=== PATIENT | female | born 1930 | race Caucasian/White ===

== ENCOUNTER 2017-01-30 18:01 | Observation (INO) | payer MEDICARE, OTHER ==
--- OUTSIDE RECORDS SUMMARY | 2017-01-30 18:05 | XMS | Clinical Summary ---
:1930 Author Organization [facility] Address [address] [place] [id number] Phone Care Team Providers Name Role Phone Workkathleen Mehul Primary Care Provider tel Allergies No Known Allergies Current Medications Prescription Sig. Disp. Refills Start Date End Date Status atenolol (TENORMIN) 25 MG Take 25 mg by Active tablet mouth daily. simvastatin (ZOCOR) 40 MG Take 40 mg by Active tablet mouth nightly. olmesartan (BENICAR) 20 MG Take 20 mg by Active tablet mouth daily. aspirin (ECOTRIN) 81 MG Take 81 mg by Active enteric coated tablet mouth daily. Active Problems Problem Noted Date Macular hole of right eye 08/28/2015 Epiretinal membrane, both eyes 08/28/2015 Family History Medical History Relation Name Comments Heart disease Brother Stomach cancer Mother Colon cancer Sister Relation Name Status Comments Brother Mother Sister Social History Tobacco Use Types Packs/Day Years Used Date Former Smoker Cigarettes Quit: 1999 Sex Assigned at Date Recorded Not on file Last Filed Vital Signs Vital Sign Reading Time Taken Blood Pressure 133/56 08/28/2015 9:17 AM CDT Pulse 56 08/28/2015 9:17 AM CDT Temperature 36.4 C (97.5 F) 08/28/2015 9:17 AM CDT Respiratory Rate 20 08/28/2015 9:17 AM CDT Oxygen Saturation 100% 08/28/2015 9:10 AM CDT Inhaled Oxygen Concentration - - Weight 59.9 kg (132 lb) 08/28/2015 7:41 AM CDT Height 172.7 cm (5' 8") 08/28/2015 7:41 AM CDT Body Mass Index 20.07 08/28/2015 7:41 AM CDT Plan of Treatment Not on file Results Not on filefrom Last 3 Months Insurance Payer Benefit Plan / Group Subscriber ID Type Phone Address MEDICARE MEDICARE PART A AND B [id number] Medicare [place], [place] FOR LIFE [id number] [facility] [phone] [place] [address]
[2017-01-30] MEDS ORDERED: Lidocaine 1% w/Epinephrine 1:200K 30 ML VIAL ONE (18:37)
[2017-01-30] MEDS ORDERED: Adacel (T-DAP) 0.5 ML VIAL ONE (19:06)
[2017-01-30] MEDS ORDERED: hydrALAZINE 20 MG/ML VIAL ONE (19:19)
[2017-01-30 19:50] LABS: Troponin I 0.025 ng/mL (< 0.028)
--- NOTE | 2017-01-30 22:13 | HP ---
PRIMARY CARE PHYSICIAN: Dr. Appiah CHIEF COMPLAINT: Fall and intracranial bleed. HISTORY OF PRESENT ILLNESS: Ms. Lares is a very pleasant 86-year-old white female with a history of coronary artery disease, hypertension, and abdominal aortic aneurysm who was at [facility] today and s uddenly felt \\\\"bad.\\\\" When asked to describe, she felt just sick. She denies any presyncopal or closing tunnel feeling, no sensation of blacking out, no vertigo, just felt off balance. Next thing she knows she was lying on the floor looking over the ceiling. She had passed out and fallen hitti ng her head on the floor and was taken to the Emergency Department in [place]. There, she had a CT scan that showed a very small midline intracranial hemorrhage and she had a post erior scalp hematoma. She was transferred here for further neurosurgical evaluation and further wor kup. She denies any chest pain or difficulty breathing, no nausea or vomiting, no diarrhea or constipatio n. She has had a history of high blood pressure. She has been on Benicar/HCT 20/12.5 and last week was increased to 40/12.5 and seems to be more off balance when she gets up since then. She denies any other current complaints. PAST MEDICAL HISTORY: 1. AAA status post stent several years ago. 2. Coronary artery disease. 3. Degenerative joint disease. 4. Hypertension. 5. Hyperlipidemia. PAST SURGICAL HISTORY: Includes, 1. AAA stents. 2. Carotid endarterectomy. 3. Bilateral cataract removal. HOME MEDICATIONS: 1. Atenolol 25 mg p.o. q.a.m. 2. Os-Rehan 600 mg 2-1/2 tablets daily. 3. Multivitamin daily. 4. Benicar/HCT 40/12.5 daily. 5. [place] 3/dha/fish oil daily. 6. Zocor 40 mg p.o. at bedtime. 7. Aspirin 81 mg daily. ALLERGIES: NKDA. FAMILY HISTORY: Negative for clotting or bleeding disorder, no venous function. SOCIAL HISTORY: Negative for habits x3. She lives alone and has a son that is in the room with her as a decision maker if necessary. The patient does wish to be FULL CODE. REVIEW OF SYSTEMS: A 10-point review of systems was performed, negative for all other systems excep t as stated as per HPI. PHYSICAL EXAMINATION: VITAL SIGNS: Temperature 98.0, pulse 83, blood pressure 164/72, when I was in the room was 183/80, respiratory rate 20, O2 sat 95% on room air. GENERAL: She is awake. She is alert. She is oriented x3. She is a well-developed, well-nourished , elderly white female, appears to be in no acute distress. HEENT: She is normocephalic. She has a large bandage wrapped around her head, it was not removed. Pupils are equal, round, reactive to light bilaterally, mucous membranes are moist without visible lesions and no thrush. NECK: Supple. She has no lymphadenopathy, JVD or thyromegaly. LUNGS: Clear to auscultation bilaterally. She had no wheezes, no rales, no rhonchi. No prolonged expiratory phase. Good air movement. Symmetrical chest excursion. CARDIOVASCULAR: Normal S1 and S2. No S3 or S4. She has a regular rhythm and a normal rate. She h as no audible murmur. ABDOMEN: Soft, nontender, nondistended. No masses or organomegaly. She has no rebound, rigidity o r guarding. EXTREMITIES: No cyanosis, no clubbing. No edema with 2+ peripheral pulses. SKIN: Warm, moist, and well perfused. She has no other rashes or lesions, other than her head inju ry in the posterior aspect. MUSCULOSKELETAL: Normal to inspection. She has no joints that are inflamed and no palpable joint e ffusions. Good range of motion. LABORATORY EVALUATION: Comprehensive metabolic profile is fairly normal. Creatinine is 1.89 and th is is not a known finding to the patient. Her AST is slightly elevated at 50. CBC is normal. Whit e blood cell count of 8.1, hemoglobin 14.2, hematocrit of 41.9 and platelet count of 180,000. A CT scan of the head without contrast shows a very small subcentimeter subarachnoid hemorrhage pres ent in the center in the midline just to the left cerebral hemisphere. ASSESSMENT AND PLAN: 1. Intracranial hemorrhage: Small. We will keep her blood pressure goal between 140 and [address] scan in the morning. Neurosurgery physician's pediatric physical therapy assistant has been into the ER and se e the patient and I will follow up with her in the morning. The CT scan is unchanged. Tomorrow, th e patient may be cleared for discharge once medically ready. 2. Syncopal episode. Patient per history clearly syncopized before falling. She has had increasin g dizzy spells since increased blood pressure, but has had some disequilibrium over time. I suspect she may be orthostatic. We will get orthostatic vital signs when she gets up stairs. In the meant dal[place], we will hold her Benicar/HCT she took it this morning. We will hold her atenolol. She takes a t bedtime for right now. She got 10 mg dose of hydralazine a little while ago in the Emergency Depa rtment and as I dictate this, the nurse reported systolic blood pressure did drop to 109. We will c hange her to 5 mg of hydralazine IV q.2 p.r.n. and should keep a close eye on her blood pressure. 3. History of coronary artery disease. No symptoms and negative troponin. 4. History of abdominal aortic aneurysm, patient had stents placed and has had gotten yearly survei llance. She was able to skip this year and is not due for reevaluation. 5. She appreciates no abdominal symptoms at all. 6. Hyperlipidemia, on Zocor, will continue.
[2017-01-30] MEDS ORDERED: Labetalol HCl 100 MG/20 ML VIAL SLOW IVP PRN (22:18)
[2017-01-30] MEDS ORDERED: HYDROcodone/Acetaminophen 10/325 mg Tablet PO PRN (22:18)
[2017-01-30] MEDS ORDERED: Acetaminophen 325 MG TAB PO PRN (22:18)
[2017-01-30] MEDS ORDERED: HYDROcodone/Acetaminophen 5/325 mg Tablet PO PRN (22:18)
[2017-01-30 22:29] LABS: Troponin I Less than 0.010 ng/mL (< 0.028)
[2017-01-30] MEDS: Sodium Chloride 0.9% 1,000 ML IV SCH (23:05)
[2017-01-30] MEDS: Famotidine/PF 20 mg/2ml Vial SLOW IVP SCH (23:24)
--- NOTE | 2017-01-31 00:11 | CON ---
DATE OF CONSULTATION: 01/30/2017 HISTORY OF PRESENT ILLNESS: The patient is an 86-year-old female with a transfer from [facility] for acute traumatic subarachnoid hemorrhage. Patient reports that she was shopping in [employer] when the next thing she knows she was waking up on the floor. She appears to have had an acute syncopal episode. She was brought to the emergency department in [place] and evaluated with head and cervical spine CT. These were notable for what appears to be coup contrecoup injury with small frontal subarachnoid hemorrhage along the sylvian fissure. CT of the cervical spine was notable for degenerative changes at C4-C5, C5-C6, and C6-C7; however, no acute changes are seen. Lab work is notable for elevated creatinine 1.89. The Hospitalist Service has also been consulted for medical management and further evaluation of syncope. The patient does report that her PCP, Dr. Appiah recently increased her Benicar dosage. PAST MEDICAL HISTORY: Hypertension, abdominal aneurysm, bilateral cataracts, basal cell carcinoma of the nose, arthritis, coronary artery disease. PAST SURGICAL HISTORY: Eye surgery, skin biopsy, knee surgery, abdominal aortic aneurysm, carotid endarterectomy. SOCIAL HISTORY: Patient lives at home alone. She is a former smoker, she quit in 2000. She does not drink or use any drugs. ALLERGIES: Patient has no known drug allergies. REVIEW OF SYSTEMS: Per HPI. PHYSICAL EXAMINATION: VITAL SIGNS: Blood pressure 164/72, pulse 83, respiration rate was 20. She is 95% on room air, temperature is 98.0. HEAD: Patient has a contusion and abrasion over the posterior scalp. EYES: PERRLA. Extraocular movements intact. ENT: Oral mucosa is dry. Mucosa intact. NECK: Nontender to palpation. Free active range of motion, no meningismus or nuchal rigidity. LUNGS: The patient is breathing comfortable, nontender to palpation of the chest, symmetric chest expansion. CARDIOVASCULAR: Regular rate and rhythm. No murmurs, rubs or gallops. ABDOMEN: Flat, soft, nontender to palpation. MUSCULOSKELETAL: Free active range of motion of all extremities. No focal motor weakness. NEUROLOGIC: The patient is alert and oriented x4. GCS of 15. Normal speech. Normal cranial nerve exam. ASSESSMENT AND PLAN: Syncope, head injury, coup contrecoup injury with acute traumatic frontal subarachnoid hemorrhage. PLAN: The patient would be admitted to the medical service for further evaluation of her syncopal episode. We will consult on the case. We will plan to repeat CT head in the morning for repeat evaluation of acute traumatic subarachnoid hemorrhage. Head of the bed should be elevated at 30 degrees. We will recommend systolic blood pressure range of 140 to 160. Patient denies any prior anticoagulant use. Dr. Medina has been notified and is in agreement with this plan. Please reach out to Neurosurgery Service for additional questions or concerns. BONG
[2017-01-31 00:13] VITALS: BMI 19.5
[2017-01-31 05:35] LABS: #Lymphocytes 1.7 thou/uL (1.20-3.40); #Monocytes 0.5 thou/uL (0.11-0.59); #Neutrophils 5.6 thou/uL (1.40-6.50); %Basophils 0.3 % (0.0-1.0); %Eosinophils 0.4 % (0.0-10.0); %Lymphocytes 21.8 % (21.0-51.0); %Monocytes 6.7 % (0.0-10.0); Hematocrit 37.6 % (36.0-47.0); Mean Platelet Volume 8.3 fL (7.4-10.4); Red Blood Cell (RBC) Count 3.97 mill/uL (4.20-5.40); White Blood Cell (WBC) Count 7.9 thou/uL (4.8-10.8)
[2017-01-31 05:54] LABS: Anion Gap 12 mmol/L (10-20); BUN (Urea Nitrogen) 17 mg/dL (9.8-20.1); Calc. Creatinine Clearance 47 mL/min (70-130); Calcium 8.7 mg/dL (7.8-10.44); Carbon Dioxide 20 mmol/L (23-31); Chloride 101 mmol/L (98-107); Estimated GFR-MDRD 65
[2017-01-31 05:59] LABS: Troponin I 0.028 ng/mL (< 0.028)
--- NOTE | 2017-01-31 08:57 | ULT ---
ULTRASOUND CAROTID DOPPLER: Date: 01/31/17 HISTORY: Dizziness, syncope. COMPARISON: None. FINDINGS: No elevated peak systolic velocity to suggest hemodynamically significant stenosis. Antegrade flow t o both vertebral arteries. Moderate atherosclerotic plaque of both common carotid arteries and carotid bulbs. IMPRESSION: Moderate atherosclerotic plaque. No hemodynamically significant stenosis. POS: [facility]
[2017-01-31] MEDS: Ondansetron HCl/PF 4 MG/2 ML Vial IVP PRN ×2 (09:18→16:21)
[2017-01-31] MEDS ORDERED: Amlodipine 5 MG TAB PO SCH (09:30)
[2017-01-31] MEDS ORDERED: Sodium Chloride 0.9% 500 ML IV SCH (09:45)
[2017-01-31] MEDS: Sodium Chloride 0.9% 1,000 ML IV SCH (09:48)
--- NOTE | 2017-01-31 10:09 | CT ---
HEAD CT WITHOUT CONTRAST: Date: 01/31/17 COMPARISON: None. HISTORY: Fall, head trauma, evaluate intracranial hemorrhage. TECHNIQUE: Serial axial CT imaging at 5 mm intervals from vertex through skull base without contrast. FINDINGS: There are cutaneous naya associated with the posterior superior scalp. The imaged paranasal sinuses/mastoid air cells appear well aerated. There is no displaced calvarial fracture. There is atherosclerotic calcification of the cavernous carotid arteries bilaterally. There is a focus of extra-axial hyperdensity on axial image 18 just to the right of the interhemisph nash falx, measuring up to 9.0 x 6.0 mm, evidence of extra-axial hemorrhage/subdural hematoma. There is no associated midline shift or mass effect. IMPRESSION: 6.0 x 9.0 mm hyperdense extra-axial focus in the medial right frontal region suggests a small subdur al hematoma. The history for this report is follow-up intracranial hemorrhage. However, no com parison imaging is available. If comparison imaging is made available, an addendum could be placed o n this report describing any interval change. POS: [facility]
[2017-01-31 15:38] VITALS: TEMP 97.8
--- NOTE | 2017-01-31 16:57 | RAD ---
FRONTAL AND LATERAL IMAGING OF THE CHEST: Date: 01-31-17 Comparison: 08-10-13 History: Chronic dyspnea on exertion. FINDINGS: Post-operative clips are seen at the base of the neck of the right. There is atherosclerotic calcifi cation of the aortic arch. There is increased liner interstitial density with mild pulmonary hyperin flation, stable. There is no pneumothorax, pleural effusion, lobar consolidation, or alveolar edema. IMPRESSION: Stable examination of the chest. Pulmonary hyperinflation and linear diffuse increased interstitial density suggests air trapping and COPD in the proper clinical setting. POS: [facility]
[2017-01-31] MEDS: Famotidine/PF 20 mg/2ml Vial SLOW IVP SCH (18:31)
--- NOTE | 2017-01-31 18:38 | DIS ---
DATE OF ADMISSION: 01/30/2017 DATE OF DISCHARGE: 01/31/2017 PRIMARY CARE PHYSICIAN: Travis Appiah M.D. DISCHARGE DIAGNOSES: 1. Syncope and collapse. 2. Orthostasis. 3. Very small intracranial hemorrhage. 4. Fall from same level resulting in injury. 5. Essential hypertension. 6. Hyperlipidemia. CONSULTATION: Neurosurgery, he is to be seen on 01/30/2017 by Ashley Preston and Dr. Medina. PROCEDURES: 1. Carotid Doppler study on 01/31 that showed no hemodynamically significant flow, but some mild to moderate atherosclerotic cerebrovascular disease extracranially with a normal antegraded flow. 2. Brain CT on 01/31/2017 that showed near complete resolution of the very small intracranial hemor rhage from the vent from the day before. 3. Chest x-ray showed slight hyperinflation, no emphysematous changes, and clear lung to. HISTORY AND PHYSICAL: Ms. Lares is an 86-year-old female, who was at [facility] when she syncopized an d woke up on the floor. She had fallen, hitting her head on the posterior aspect. She was brought to the local ER there for evaluation, which she was found to have a very small intracranial bleed, w as transferred here for neurosurgical evaluation. She had recently had her Benicar HCT increased fr om 20/12.5-40/12.5 within the last week. On arrival here, she was hypertensive. She was given a small dose of labetalol to bring her pressur e down and was subsequently admitted for workup. HOSPITAL COURSE: The patient was seen and examined, I placed in observation overnight. Blood press ure was managed, Neurosurgery was consulted and saw her in the emergency department and a CT scan wa s ordered for the following morning. Carotid Doppler study was performed that was largely unremarka ble. We will treat her echocardiogram from [facility] that has been done which was normal, and repeat brain CT in the morning on 01/31 showed near complete resolution of the previous abnormal findings. Neurosurgery cleared her for discharge and declared there was no operative intervention needed. On admission and this morning, the patient did have a greater than 20 systolic and 10 diastolic drop in the blood pressure without any increase in her heart rate. She has been on atenolol twice a day plus her Benicar HCT. I suspect that combination medicines caused her to be orthostatic. These we re held, she was started on Norvasc 5 mg p.o. daily today. Her blood pressure was 134/68. When she got physical therapy, her heart rate and blood pressure did go up appropriately. She had no syncop e or presyncope. The patient was stable for discharge home with outpatient followup and home health care for physical therapy. PHYSICAL EXAMINATION: The patient was seen and examined on the day of discharge Discharge plan and disposition was discussed with the patient, and both of her sons a face to face a t the bedside. DISCHARGE MEDICATIONS: 1. Norvasc 5 mg p.o. daily. 2. Holding her Aspirin 81 mg daily. 3. Stopping her Benicar HCT 40/12.5. 4. Stopping her atenolol 25 mg p.o. b.i.d. 5. Adding Zofran 4 mg p.o. q.4 h. p.r.n. nausea. 6. Continuing Zocor 40 mg p.o. at bedtime. His aspirin can be resumed in 1-2 weeks by her primary care physician. FOLLOWUP APPOINTMENTS: 1. Primary care physician, Dr. Appiah in 5-7 days. 2. Neurosurgery per the clinic schedule. [facility] has been contacted to care for the patient at home. DISCHARGE CONDITION: Stable. DISPOSITION: The patient will be discharged home via private vehicle. The patient instructed to return to the Emergency Department for fever, increased headache or intrac table headache, or neurologic findings.
[2017-02-01 07:16] VITALS: BP 136/71
== END 2017-01-31 16:41 | disposition home health service (06) ==
LOC: ERS 18:01 → 2SE 18:06
PROVIDERS: ADMIT Internal Medicine Infectious Disease; ATTEND Internal Medicine Infectious Disease
DX: I95.1 Orthostatic hypotension (principal); I10 Essential (primary) hypertension; S06.309A Unspecified focal traumatic brain injury with loss of consciousness of unspecified duration, initial encounter; E78.5 Hyperlipidemia, unspecified; I25.10 Atherosclerotic heart disease of native coronary artery without angina pectoris; I71.4 Abdominal aortic aneurysm, without rupture; M19.90 Unspecified osteoarthritis, unspecified site; Z79.82 Long term (current) use of aspirin; Z79.899 Other long term (current) drug therapy; Z91.81 History of falling
CPT/HCPCS: 12002; 70450; 71020; 80048; 84484 ×3; 85025; 90471; 90715; 93005; 93880; 96361 ×3; 96374; 96375 ×2; 96376; 97116; 97139 ×3; 99291; G0378; G8978; G8979; G8980; G8987; G8988; 36415; J0360; J2405; S0028

== ENCOUNTER 2018-09-06 08:52 | Outpatient (CLI) | payer MEDICARE, OTHER ==
--- NOTE | 2018-09-06 12:55 | CT ---
CT CHEST NONCONTRAST: 09/06/18 HISTORY: Lung nodule. COMPARISON: None available. Report is abnormality on prior CT chest from [place]. FINDINGS: Lungs are hyperinflated with emphysematous bullae at the upper lobes. Scattered areas of mild interst itial scarring. At the left posterolateral lung base, an irregular shape heterogeneous soft tissue de nsity mass measures up to 3.4 cm length x 2.5 cm depth. It abuts the left posterolateral pleura and i s surrounded by adjacent ill-defined parenchymal opacity. No other dominant nodule of the left lung i s apparent. Numerous peripheral small predominantly subpleural nodules are present throughout the right lung. The largest are at the anterolateral aspect of the right upper lobe, measuring 1.2 x 0.8 cm greatest chrystal meters, and at the posteromedial aspect of the superior segment left lower lobe, where two separate 0 .8 cm nodules abut the pleura. No pleural fluid or pneumothorax. Lack of contrast limits evaluation of the soft tissues. Pectus excavatum deformity apparent. Prominen t calcification within the arterial structures. Soft tissue/fluid density structure within the anteri or central mediastinum at the level of the right atrium is shown on prior CT exams of the abdomen wit h contrast to represent a focal outpouching of the right atrium. IMPRESSION: Bilateral lung masses and nodules as detailed above. The largest is at the left posterolateral lung b ase, abutting the pleura, 3.4 cm greatest diameter. Neoplasm is favored. Severe atherosclerosis. POS: [facility]
== END 2018-09-06 08:53 | disposition home or self-care (01) ==
LOC: BICCT 08:52
PROVIDERS: ATTEND Internal Medicine Critical Care Medicine
DX: R91.8 Other nonspecific abnormal finding of lung field (principal)
CPT/HCPCS: 71250

== ENCOUNTER 2019-03-08 09:23 | Outpatient (CLI) | payer MEDICARE, OTHER ==
--- NOTE | 2019-03-08 10:24 | CT ---
CT CHEST WITHOUT CONTRAST ENHANCEMENT: HISTORY: Followup of lung nodule. COMPARISON: 09/06/2018 FINDINGS: Severe emphysematous lung change is again demonstrated with multiple blebs seen in both upper lobes. The left lower lobe pleural-based mass seen on axial image 86 is stable in size at 2.5 cm. There are surrounding parenchymal changes, which are also similar to the previous exam. The slightly oblong-sha ped right upper lobe lung mass, axial image 80, is also unchanged. It measures approximately 12 mm in maximum length. It is a pleural-based nodule, lying in the anterior segment of the right upper lobe, along the minor fissure. Within the right middle lobe, a small nodule, measuring 5 to 6 mm in size, seen on axial image 92, is a new nodule, as compared to the prior examination. There is an additional pleural-based nodule seen in the right middle lobe, axial image 98, which measures in the 4-5 mm ran ge, which is stable. The pleural-based areas of nodularity within the right lower lobe are felt to be stable. I do not appreciate significant mediastinal adenopathy. There are coronary calcifications noted. A pe ctus deformity to the chest is present. The visualized liver parenchyma is normal. Partial visualization of an aortic stent is seen in the ab domen. IMPRESSION: 1. Severe emphysematous lung change. 2. There has been development of one new 5 to 6 mm nodule within the right middle lobe; otherwise, al l the pulmonary nodules are stable in size and appearance. POS: [facility]
== END 2019-03-08 09:24 | disposition home or self-care (01) ==
LOC: BICCT 09:23
PROVIDERS: ATTEND Internal Medicine Critical Care Medicine
DX: R91.8 Other nonspecific abnormal finding of lung field (principal); J43.9 Emphysema, unspecified
CPT/HCPCS: 71250

== ENCOUNTER 2021-09-15 12:30 | Outpatient (CLI) | payer MEDICARE, OTHER | END 2021-09-15 12:31 | disposition home or self-care (01) | LOC: PET 12:30 | PROVIDERS: ATTEND Internal Medicine Hematology & Oncology | DX: C34.82 Malignant neoplasm of overlapping sites of left bronchus and lung (principal) | CPT/HCPCS: 78815; A9552 ==

== ENCOUNTER 2021-09-17 12:26 | Outpatient (CLI) | payer MEDICARE, OTHER | END 2021-09-17 12:27 | disposition home or self-care (01) | LOC: MRI 12:26 | PROVIDERS: ATTEND Internal Medicine Hematology & Oncology | DX: C34.82 Malignant neoplasm of overlapping sites of left bronchus and lung (principal) | CPT/HCPCS: 70553 ==

== ENCOUNTER 2022-04-12 11:29 | Inpatient (IN) | payer MEDICARE, OTHER ==
[2022-04-12] MEDS ORDERED: Acetaminophen 500 MG TAB ONE (12:33)
[2022-04-12 12:37] LABS: INR-International Normal Ratio 0.9; Prothrombin Time 12.8 sec (12.0-14.7)
[2022-04-12 12:38] LABS: PTT 30.9 sec (22.9-36.1)
[2022-04-12] MEDS ORDERED: Acetaminophen 500 MG TAB PO PRN (13:15)
[2022-04-12] MEDS ORDERED: Ondansetron ODT 4 MG TAB PO PRN (13:15)
[2022-04-12] MEDS ORDERED: Ondansetron PF 4 MG/2 ML Vial IVP PRN (13:15)
[2022-04-12 16:05] LABS: Troponin I 0.047 ng/mL (< 0.028)
[2022-04-12 19:28] LABS: Troponin I 0.069 ng/mL (< 0.028)
[2022-04-12] MEDS: Mometasone/Formoterol 200/5 60 PUFF INH SCH (21:51)
[2022-04-12] MEDS: Famotidine 20 MG TAB PO SCH (22:04)
[2022-04-12 22:25] VITALS: BMI 17.5
[2022-04-13 01:55] LABS: SARS-CoV-2 NAA Rapid Test Not Detected (NotDetected)
[2022-04-13 05:35] LABS: #Eosinphils 0.1 thou/uL (0.0-0.7); #Lymphocytes 1.8 thou/uL (1.20-3.40); #Monocytes 0.5 thou/uL (0.11-0.59); #Neutrophils 4.3 thou/uL (1.40-6.50); %Basophils 0.5 % (0.0-1.0); %Lymphocytes 26.6 % (21.0-51.0); %Monocytes 8.1 % (0.0-10.0); %Neutrophils 63.8 % (42.0-75.0); Hemoglobin 12.6 g/dL (12.0-16.0); Mean Corpuscular HGB CONC 32.5 g/dL (32.0-36.0); Mean Corpuscular Hemoglobin 30.1 pg (27.0-31.0); Mean Corpuscular Volume 92.7 fl (78.0-98.0); Mean Platelet Volume 7.7 fL (7.4-10.4); Platelet Count 192 10x3/uL (130-400); RBC Distribution Width 13.5 % (11.5-14.5); Red Blood Cell (RBC) Count 4.19 mill/uL (4.20-5.40); White Blood Cell (WBC) Count 6.7 10x3/uL (4.8-10.8)
[2022-04-13 05:49] LABS: Anion Gap 11 mmol/L (10-20); BUN (Urea Nitrogen) 10 mg/dL (9.8-20.1); Calc. Creatinine Clearance 46 mL/min (70-130); Carbon Dioxide 25 mmol/L (23-31); Chloride 97 mmol/L (98-107); Estimated GFR 83; Glucose 105 mg/dL (83-110); Potassium 3.9 mmol/L (3.5-5.1); Sodium 129 mmol/L (136-145)
[2022-04-13] MEDS: Mometasone/Formoterol 200/5 60 PUFF INH SCH ×2 (07:53→18:50)
[2022-04-13] MEDS: Famotidine 20 MG TAB PO SCH ×2 (08:54→21:27)
[2022-04-13] MEDS: Multivitamin W/ Minerals 1 TAB PO SCH (08:54)
[2022-04-13] MEDS ORDERED: Amlodipine 5 MG TAB PO SCH (09:00)
[2022-04-13] MEDS ORDERED: Fish Oil 1,000 MG CAP PO SCH (09:00)
[2022-04-13] MEDS ORDERED: Sodium Chloride 0.9% 1,000 ML IV SCH (09:15)
[2022-04-13] MEDS: Calcium Carbonate 500 MG TAB PO SCH (09:24)
[2022-04-13] MEDS ORDERED: Lorazepam 0.5 MG TAB PO PRN (10:00)
[2022-04-13] MEDS ORDERED: Atenolol 25 MG TAB PO SCH (11:45)
[2022-04-13] MEDS ORDERED: Digoxin 0.5 MG/2 ML AMP SLOW IVP SCH (12:00)
[2022-04-13] MEDS ORDERED: Amiodarone 450 MG in Dextrose 5% in Water 250 ML IVPB SCH (12:15)
[2022-04-13] MEDS ORDERED: Bisacodyl 5 MG TAB PO PRN (20:19)
[2022-04-13] MEDS ORDERED: Senokot S 8.6-50 MG TAB PO PRN (20:19)
[2022-04-13] MEDS ORDERED: Atorvastatin Calcium 20 MG TAB PO SCH (21:00)
[2022-04-14] MEDS: Mometasone/Formoterol 200/5 60 PUFF INH SCH (08:21)
[2022-04-14] MEDS: Famotidine 20 MG TAB PO SCH (08:43)
[2022-04-14] MEDS: Multivitamin W/ Minerals 1 TAB PO SCH (08:43)
[2022-04-14] MEDS: Calcium Carbonate 500 MG TAB PO SCH (08:44)
[2022-04-14] MEDS ORDERED: Polyethylene Glycol 3350 17 GM Packet PO SCH (09:00)
[2022-04-14] MEDS ORDERED: Amiodarone 200 MG TAB PO SCH (09:00)
[2022-04-14 11:29] VITALS: BP 150/96; TEMP 98
[2022-04-28] MEDS ORDERED: Amiodarone 200 MG TAB PO SCH (09:00)
[2022-05-12] MEDS ORDERED: Amiodarone 200 MG TAB PO SCH (09:00)
== END 2022-04-14 15:20 | disposition hospice, home (50) | DRG 83 ==
LOC: ERS 11:29 → ERHOLD 12:40 → NEURO 21:18 → OBSVTOIN 04-13 15:28
PROVIDERS: ADMIT Family Medicine; ATTEND Internal Medicine
DX: S06.6XAA Traumatic subarachnoid hemorrhage with loss of consciousness status unknown, initial encounter (principal); C34.90 Malignant neoplasm of unspecified part of unspecified bronchus or lung; C79.32 Secondary malignant neoplasm of cerebral meninges; E87.1 Hypo-osmolality and hyponatremia; Z66 Do not resuscitate; I10 Essential (primary) hypertension; R55 Syncope and collapse; I25.10 Atherosclerotic heart disease of native coronary artery without angina pectoris; E78.5 Hyperlipidemia, unspecified; I48.0 Paroxysmal atrial fibrillation; Z20.822 Contact with and (suspected) exposure to COVID-19; Z79.82 Long term (current) use of aspirin; Z79.899 Other long term (current) drug therapy; Z95.5 Presence of coronary angioplasty implant and graft; Z98.890 Other specified postprocedural states; W18.39XA Other fall on same level, initial encounter
CPT/HCPCS: 36415; 70450; 80048; 84484; 85025; 85610; 85730; 93005; 93010; 94640; 96374; G0378; J0282; J7050; J7070; J7611